=== PATIENT | female | born 1980 | race Caucasian/White ===

== ENCOUNTER → 2016-08-05 | Outpatient (CLI) | payer BC ==
[~2016-08-05] MED LIST: CALC500C3 PO; PRENTAB26 PO
--- NOTE | 2016-08-05 15:08 | DIAGNOSTIC IMAGING REPORT ---
RIGHT KNEE 4 OR MORE CLINICAL HISTORY: RIGHT KNEE PAIN Right COMPARISON STUDY: None. FINDINGS: No fracture or dislocation within the right knee. Soft tissues are unremarkable. Cartilage spaces are maintained for age. No knee effusion. Tiny marginal osteophyte at the patella. IMPRESSION: Unremarkable right knee. Electronically signed by: Jose Carlos Adams M.D. 08/05/2016 3:07 PM Dictated Date/Time: 08/05/2016 3:04 PM
== END | disposition home or self-care (01) ==
LOC: C.RDSM 09:51
PROVIDERS: ATTEND Internal Medicine
DX: M25.561 Pain in right knee (principal)

== ENCOUNTER → 2017-03-31 | Outpatient (CLI) | payer BC ==
--- NOTE | 2017-03-31 16:10 | DIAGNOSTIC IMAGING REPORT ---
TWO VIEW CHEST CLINICAL HISTORY: Dyspnea. FINDINGS: PA and lateral chest radiographs are compared to study dated 02/25/2009. The cardiomediastinal silhouette is unremarkable. The lungs and pleural spaces are clear. There is no pneumothorax. The bony thorax appears intact. IMPRESSION: No active disease in the chest. Electronically signed by: Shayne Felton M.D. 03/31/2017 4:09 PM Dictated Date/Time: 03/31/2017 4:09 PM
== END | disposition home or self-care (01) ==
LOC: C.RAD 15:32
PROVIDERS: ATTEND Nurse Practitioner Family
DX: R07.89 Other chest pain (principal); R06.00 Dyspnea, unspecified

== ENCOUNTER → 2017-10-18 | Outpatient (CLI) | payer BC, OTHER | END | disposition home or self-care (01) | LOC: C.RDSM 14:15 | PROVIDERS: ATTEND Family Medicine Sports Medicine | DX: M25.579 Pain in unspecified ankle and joints of unspecified foot (principal) ==